=== PATIENT | female | born 1980 | race Caucasian/White ===

== ENCOUNTER → 2019-01-23 | Outpatient (CLI) | payer SELFPAY ==
[~2019-01-23] MED LIST: ACHD5005 PO
== END | disposition home or self-care (01) ==
LOC: PREOP 05:32
PROVIDERS: ATTEND Surgery
DX: Z01.818 Encounter for other preprocedural examination (principal)

== ENCOUNTER 2019-01-28 11:37 | Day surgery (SDC) | payer OTHER ==
[~2019-01-28] VITALS: Ht 165.1 cm; Wt 83.9 kg
[2019-01-28 11:55] VITALS: BP 109/59
[2019-01-28] MEDS ORDERED: NS IV 500 ML 500 ML IV PRN (12:13)
[2019-01-28] MEDS ORDERED: HURRICAINE EXT TUBE (BENZOCAINE) XX PRN (12:15)
[2019-01-28] MEDS ORDERED: fentaNYL INJECTION 100 MCG/2 ML AMP IVP ONE (12:15)
[2019-01-28] MEDS ORDERED: MIDAZOLAM 2 MG/2 ML (VERSED) VIAL IVP ONE (12:15)
[2019-01-28] MEDS ORDERED: NS IV 500 ML 500 ML ONE (12:16)
--- NOTE | 2019-01-28 12:56 | History & Physicial ---
History of Present Illness History of Present Illness Reason for visit/HPI to undergo an upper endoscopy regarding epigastric pain and intermittent dysphagia. Date of Admission 01/28/19 Date Seen by a Provider: Jan 28, 2019 Time Seen by a Provider: 12:54 I consulted on this patient on 01/28/19 12:54 Attending Physician Regla Samuels MD Admitting Physician Stephanie Arroyo DO Consult Allergies and Home Medications Allergies Coded Allergies: No Known Drug Allergies (Unverified , 02/28/11) Home Medications Hydrocodone Bit/Acetaminophen 1 Tab Tab, 1-2 TAB PO PRN PRN for PAIN Prescribed by: UTE DYKES on 03/19/14 8981 Patient Home Medication List Home Medication List Reviewed: Yes Past Elfirnc-Cnmuaa-Lovbzo Hx Patient Social History Marrital Status: Employed/Student: employed Alcohol Use: Denies Use Recreational Drug Use: No Smoking Status: Never a Smoker Recent Foreign Travel: No Contact w/other who traveled: No Recent Hopitalizations: Yes (previous delivery in 2003, ) Recent Infectious Disease Expo: No Immunizations Up To Date Tetanus Booster (TDap): Unknown Pediatric: No Surgeries Yes (lymph node removed in 2003, vaginal delivery in 2003, lap for cyst removal ) Gallbladder Respiratory No Cardiovascular No Neurological No Reproductive System Hx Reproductive Disorders: No Gastrointestinal No Musculoskeletal No Endocrine History of Endocrine Disorders: No Cancer No Psychosocial History of Psychiatric Problem: Yes Behavioral Health Disorders: Depression Integumentary History of Skin or Integumenta: No Blood Transfusions History of Blood Disorders: No Review of Systems Constitutional: no symptoms reported EENTM: no symptoms reported Respiratory: no symptoms reported Cardiovascular: no symptoms reported Gastrointestinal: see HPI Genitourinary: no symptoms reported Musculoskeletal: no symptoms reported Skin: no symptoms reported Physical Exam Vital Signs Vital Signs - First Documented 01/28/19 11:55 Temp 97.2 Pulse 62 Resp 18 B/P (MAP) 109/59 (76) Pulse Ox 97 O2 Delivery Room Air Capillary Refill : Height, Weight, BMI Height: 5'5.00" Weight: 185lbs. 0.0oz. 83.527106kr; 30.8 BMI Method: General Appearance: No Apparent Distress Neck: Normal Inspection Gastrointestinal: Non Tender, Soft Neurologic/Psychiatric: Alert, Oriented x3 Skin: Warm/Dry Assessment/Plan Assessment and Plan lady with epigastric pain and intermittent dysphagia. For upper endoscopy. Admission Diagnosis Admission Status: Other (Outpt Proc) REGLA SAMUELS MD Jan 28, 2019 12:56
--- NOTE | 2019-01-28 12:57 | Conscious Sedation/ASA ---
Conscious Sedation Pre-Proced Time 12:57 ASA Score 1 For ASA 3 and 4: Consider anesthesia and medical clearance. Also, for patients with a history of failed moderate sedation consider anesthesia. Airway Lungs Heart ASA score ASA 1: a normal healthy patient ASA 2: a patient with a mild systemic disease (mid diabetes, controlled hypertension, obesity ASA 3: a patient with a severe systemic disease that limits activity (angina , COPD, prior Myocardial infarction) ASA 4: a patient with an incapacitating disease that is a constant threat to life (CHF, renal failure) ASA 5: a moribund patient not expected to survive 24 hrs. (ruptured aneurysm) ASA 6: a declared brain- patient whose organs are being harvested. For emergent operations, add the letter E after the classification Mallampati Classification Grade 1 Sedation Plan Discussed options with patient/fam The patient is an appropriate candidate to undergo the planned procedure, sedation, and anesthesia. The patient immediately re-assessed prior to indication. REGLA SAMUELS MD Jan 28, 2019 12:57
[2019-01-28] MEDS ORDERED: HURRICAINE EXT TUBE (BENZOCAINE) ONE (13:58)
[2019-01-28] MEDS ORDERED: MIDAZOLAM 2 MG/2 ML (VERSED) VIAL ONE ×3 (13:58)
[2019-01-28] MEDS ORDERED: fentaNYL INJECTION 100 MCG/2 ML AMP ONE (13:58)
--- NOTE | 2019-01-28 14:23 | Endo Procedure Record ---
Endo Procedure Report Date of Procedure Last Colonoscopy: No Jan 28, 2019 Surgeon (s) REGLA SAMUELS MD Post Procedure/Op Diagnosis grade 2 esophagitis Multiple antral erosions 2 mm chronic duodenal ulcer Procedure Performed EGD with antral biopsy for H. pylori Description of Procedure Anesthesia Type: Conscious Sedation Specimen(s) collected/removed antral mucosa for H. pylori Description of the Procedure Indication for the procedure: This lady came in for an upper endoscopy to evaluate epigastric pain and occasional dysphagia. Informed consent was obtained after reviewing the procedure in detail. Description of the procedure: She was placed in left lateral decubitus position and her vital signs were monitored. Conscious sedation was achieved using Versed and fentanyl. The flexible gastroscope was then introduced down the esophagus, past the stomach, into the proximal duodenum. Findings: Esophagus: Grade 2 esophagitis. Stomach: Multiple distal gastric erosions were found. Biopsy for H. pylori was obtained. Duodenum: 2 mm ulcer along the first part with slough along the base, indicating chronicity. She tolerated the procedure well and was taken back to the nursing area in a stable condition. Impression: Epigastric pain. Gastric erosions and a chronic duodenal ulcer. Helicobacter status pending. We will initiate proton pump inhibitor therapy. Copy Copies To 1: ALIYA GOODEN XAVIER M MD Jan 28, 2019 14:23
--- NOTE | 2019-01-28 14:25 | Discharge Inst-Simple/Standard ---
Discharge Inst-Standard Discharge Medications New, Converted or Re-Newed RX: Other Patient Instructions/Follow Up Plan of Care/Instructions/FU: please call for Protonix 40 mg daily for 30 days with 5 refills to her pharmacy. Follow-up with Dr. Arroyo in 2 weeks. To avoid nonsteroidals. Activity as Tolerated: Yes Discharge Diet: No Restrictions REGLA SAMUELS MD Jan 28, 2019 14:25
[2019-01-28 14:35] VITALS: BP 108/62
[2019-01-28 15:00] VITALS: BP 110/60
[2019-01-28 15:09] VITALS: BP 110/60
== END 2019-01-28 15:10 | disposition home or self-care (01) ==
LOC: ENDO 11:37
PROVIDERS: ATTEND Surgery
DX: K20.9 Esophagitis, unspecified (principal); K25.9 Gastric ulcer, unspecified as acute or chronic, without hemorrhage or perforation; K26.9 Duodenal ulcer, unspecified as acute or chronic, without hemorrhage or perforation; K31.89 Other diseases of stomach and duodenum; F32.9 Major depressive disorder, single episode, unspecified
CPT/HCPCS: 84703